=== PATIENT | female | born 1965 | race Caucasian/White ===

== ENCOUNTER 2017-03-18 08:31 | Emergency (ER) | payer OTHER ==
[~2017-03-18] VITALS: Ht 157.5 cm; Wt 82.6 kg
[~2017-03-18 08:31] MED LIST: METFORMIN HCL500 MG PO; NORCO 5/3251 TABLET PO; PROZAC40 MG PO; SIMVASTATIN40 MG PO
[2017-03-18] MEDS ORDERED: ZANTAC150 MG PO (10:33)
[2017-03-18] MEDS ORDERED: PREDNISONE20 MG PO (10:33)
[2017-03-18 11:55] VITALS: BP 145/77
== END 2017-03-18 12:06 | disposition home or self-care (01) ==
LOC: EME 08:31
DX: T78.3XXA Angioneurotic edema, initial encounter (principal); E11.9 Type 2 diabetes mellitus without complications; E78.00 Pure hypercholesterolemia, unspecified; F32.9 Major depressive disorder, single episode, unspecified; Z79.84 Long term (current) use of oral hypoglycemic drugs
CPT/HCPCS: 87651 90; 99281; 99284; J1100